=== PATIENT | male | born 2000 | race African-American/Black ===

== ENCOUNTER 2025-02-09 05:19 | Emergency (ER) | payer OTHER, SELFPAY ==
[2025-02-09 05:20] VITALS: BP 118/60; PULSE 78; RESP 18; TEMP 36.7; O2SAT 100
--- NOTE | 2025-02-09 06:09 | ED.WOUNDLAC ---
HPI - Wound/Laceration General Chief Complaint: Wound/Laceration Stated Complaint: laceration, right index Time Seen by Provider: 02/09/25 05:29 Source: patient Mode of arrival: ambulatory Limitations: no limitations History of Present Illness HPI narrative: This is a 24-year-old male, with no significant past medical history who presents to the emergency department complaining of right index finger laceration. 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 He rates his pain 7/10. He states his last tetanus vaccination was in 2021. He has no other complaints at this time. Related Data Allergies Allergy/AdvReac Type Severity Reaction Status Date / Time No Known Allergies Allergy Verified 02/09/25 05:25 Review of Systems Review of Systems: All systems reviewed & are unremarkable except as noted in HPI and below PMFSH Past Medical History Medical History No significant past medical history Surgical History Surgical History No significant past surgical history Social History Social History Smoking status: Never smoker Alcohol intake: never Substance use: never Exam Narrative: GENERAL: Well-developed, well-nourished, and in no acute distress. HEAD: Normocephalic, atraumatic. EYES: PERRLA and EOMI. CHEST: Clear to auscultation. No respiratory distress. No wheezes rales or rhonchi HEART: Regular rate and rhythm. No murmur heard. Normal peripheral pulses. EXTREMITIES: The distal 3 mm of the skin of the right index finger appears to have been removed with a sharp object. There is no visible bone. Controlled. Normal range of motion. No edema. SKIN: Warm, dry, no rash. NEURO: Alert and oriented x3. No focal deficit. Moving all 4 limbs spontaneously PSYCH: Normal mood and affect. Course Course Emergency Course: 06:10 - The patient's exam is not concerning for exposed bone. His laceration is not amenable to repair. Will dress with Xeroform gauze and placed in a finger splint for wound protection. Will discharge with recommendation for primary care follow-up in 3-5 days for wound re-evaluation. I discussed the findings and recommendations with the patient. Discussed return and emergency precautions including signs/symptoms of wound infection and neurovascular compromise. The patient voiced understanding and agreement with the plan. All questions answered to his satisfaction. Vital Signs Vital signs: Vital Signs Temperature 98.1 F 02/09/25 05:20 Pulse Rate 78 02/09/25 05:20 Respiratory Rate 18 02/09/25 05:20 Blood Pressure 118/60 02/09/25 05:20 Pulse Oximetry 100 02/09/25 05:20 Oxygen Delivery Room Air 02/09/25 05:20 Temperature 98.1 F 02/09/25 05:20 Pulse Rate 78 02/09/25 05:20 Respiratory Rate 18 02/09/25 05:20 Blood Pressure 118/60 02/09/25 05:20 Pulse Oximetry 100 02/09/25 05:20 Oxygen Delivery Room Air 02/09/25 05:20 MDM - Wound/Laceration MDM Narrative Medical decision making narrative: Plan: Pain control, wound care, reassess Differential Diagnosis Differential diagnosis: Likely laceration and other Discharge Plan Discharge Clinical Impression: Laceration of right index finger, Pain in right finger(s) Patient Disposition: Home Condition: Stable Instructions: Antibiotic Form, Laceration (ED) Additional Instructions: You were seen in the emergency department. Your laceration is not amenable to sutures. I recommend placement of either a antibiotic impregnated gauze or antibiotic ointment with gauze to cover the wound. I recommend following up with a primary care doctor in 3-5 days for wound re-evaluation. If you develop rapidly spreading redness with increasing pain and fevers, the finger appears blue/cold, or if you have other emergent concerns for life, limb, or eyesight, return to the emergency department. Patient Language: Slovak Prescriptions: New naproxen 500 mg tablet 500 mg PO BID PRN (Reason: pain) Qty: 20 0RF (DME) Xeroform 5 X 9 bandage See Rx Instructions .Route Qty: 72 0RF Rx Instructions: As directed Follow-up/Referrals: Derrick Mccracken MD [Physician] - 3 Days (For wound reevaluation) Stand Alone Forms: Work/School Release IP Time of Disposition: 06:12
[2025-02-09] MEDS: oxyCODONE/ACETAMINOPHEN (*CRX) 5-325 MG TABLET 1 TABLET PO (06:19)
--- OUTSIDE RECORDS SUMMARY | 2025-02-09 06:22 | XMS_ITS | Clinical Summary ---
Author Organization [facility] Address [address] [place] [id number] Care Team Providers Care Head Wrestling Coach Name Role Phone Fatoumata Capps MD Primary Care Provider Allergies No known active allergies Medications No known medications Active Problems No known active problems Immunizations Immunization Administration Dates Next Due DTaP 10/09/2007, 4,04/14/2003,03/06,2002 Hep A, Pediatric 11/04/2004 Hep B, Adolescent or Pediatric 08/07/2003,2002,2002 Hib (HbOC) 06/17/2004, 3,03/06/2003,12/22 IPV 10/09/2007, 3,03/06/2003,12/22 Influenza, Quadrivalent, Spl it, Preservative Free, Intramuscular 10/18/2022 Influenza, Split 08/29/2005, 4,09/04/2003,08/07 MMR 11/13/2003 MMRV 10/09/2007 Pneumococcal Conjugate 7-Valent 08/24/20 04,04/14/2003,03/06/2003,12/22 Varicella 11/13/2003 Surgical History Surgery Date Site/Laterality Comments CIRCUMCISION, NON- at 5 years old Medical History Medical History Date Comments No pertinent past medical history Family History Medical History Relation Name Comments Low Back Pain Father Hyperlipidemia Mother Colon cancer Other Paternal great grand-father Relation Name Status Comments Father Mother Other Social History Tobacco Use Types Packs/Day Years Used Date Smoking Tobacco: Never Smokeless Tobacco: Never Tobacco Cessation:Counseling Given: Not Answered PHQ-2 Answer Date Recorded PHQ-2 Total Score (If total score is 3 or more points, staff should administer the PHQ-9) 0 10/18/2022 Sex and Gender Information Value Date Recorded Sex Assigned at Not on file Legal Sex Male 2:02 PM PHOTO SPECIALIST Gender Identity Not on file Sexual Orientation Not on file Obstetrics History Last Filed Vital Signs Vital Sign Reading Time Taken Comments Blood Pressure 110/66 10/18/2022 3:06 PM PHOTO SPECIALIST Pulse 60 10/18/2022 3:06 PM PHOTO SPECIALIST Temperature 36.8 C (98.2 F) 07/24/2020 7:16 AM CDT Respiratory Rate 22 07/24/2020 7:16 AM CDT Oxygen Saturation 98% 07/24/2020 7:16 AM CDT Inhaled Oxygen Concentration - - Weight 82.6 kg (182 lb) 10/18/2022 3:06 PM PHOTO SPECIALIST Height 185.4 cm (6' 1 ) 10/18/2022 3:06 PM PHOTO SPECIALIST Body Mass Index 24.01 10/18/2022 3:06 PM PHOTO SPECIALIST Plan of Treatment Health Maintenance Due Date Last Done Comments Hepatitis C Screening 2002 DTaP/Tdap/Td Vaccine (6 - Tdap) 2013 10/09/2007, 06/17/2004, 04/14/2003, Additional history exists HPV Vaccines (1 - Male 3-dos e series) 2017 Meningococcal B Vaccine (1 o f 2 - Standard) 2018 Depression Screening 10/18/2023 10/18/2022 Regular Well Visit/Exam 18-64 10/18/2023 10/18/2022 Covid-19 Vaccine (3 - 2023-2 5 season) 2024 02/04/2021, 01/14/2021 Influenza Vaccine (#1) 2024 3, 08/29/2005, 08/24/2004, Additional history exists Hepatitis B Screening Completed 08/07/2003 , 01/23/2003, 2002 Pneumococcal vaccine <65 Completed 004, 04/14/2003, 03/06/2003, Additional history exists Varicella Vaccines Completed 10/09/2007, 11/13/2003 Insurance [employer] [place] [facility] [place] [address] Care Teams Head Wrestling Coach Relationship Specialty Start Date End Date Fatoumata Capps MD PCP - General Family Practice 10/18/22
--- OUTSIDE RECORDS SUMMARY | 2025-02-09 06:22 | XMS_ITS | Continuity of Care Document ---
Author Organization [facility] Address [address] [place] [address] Phone Care Team Providers Care Produce Wrapper Name Role Phone Pasquale HERBERT, Melissa Unavailable Unavailable Allergies, Adverse Reactions, Alerts Substance Reaction Status Criticality No Known Allergies Active No Inform ation Medications Medication Instructions Dosage Effective Dates (start - stop) Status Comments Vyvanse 50 mg capsule take 1 capsule by oral route every day in the morning 50 MG - Active Advance Directives Directive Yes / No Effective Date File Name No Information Encounters Encounter Description Practice Location Reason(s) For Visit Diagnoses Date Provider Providers Copied on Encounter [facility], [address], [address], [phone] [facility] Displaced simple supracondylar fracture without intercondylar fracture of right humerus, subsequent encounter for fracture with routine healing 8 Giordano Melissa. [address] [facility], [facility] [address], [place], [id number] . tel: [phone] [facility], [address] [facility] [address], [place], [address], [phone] [facility] Displaced simple supracondylar fracture without intercondylar fracture of right humerus, subsequent encounter for fracture with routine healing 8 Giordano Melissa. [address] [facility], [facility] [address], [place], [id number] . tel: [phone] [facility], [address], [address], tel:[phone] [facility] Closed supracondylar fracture of right elbow with routine healing 8 Pasquale Torres. [address] [facility], [address], [place], [place], [id number] . tel: [phone] [facility], [address] [facility], [place], [address], [phone] [facility] Contusion of right elbow, initial encounter 8 Pasquale Floresa. [address] [facility], [address], [place], [place], [id number] . tel: [phone] Referring Provider: Mohamud Erickson, [address] [place] [address], [address] . tel:[phone] Family History Family Member Type Diagnosis Age At Onset No Information Payers Payer name Insurance type Covered green party ID Authoriza tion(s) [facility] E2 OT [id number] Social History Type Description Quantity Date Captured Comments Sex Male Smoking Status No Information Chief Complaint And Reason For Visit No Information Reason For Referral Reason For Referral No Information Plan Of Treatment Date Type Action Status Referral Ordered: RADEX PAULINA 2 VIEWS RT ordered History Of Present Illness Encounter Date Complaint History Of Prese nt Illness No Information Functional Status Date Functional Assessmen t No Information Instructions Date Instruction Additional Infor mation No Information Assessments Type Assessment Date assessment Displaced simple sup racondylar fracture without intercondylar fracture of right humerus, subsequent encounter for fracture with routine healing Patient Care Teams Name Effective Dates (start - stop) Status Members No Information
--- OUTSIDE RECORDS SUMMARY | 2025-02-09 06:22 | XMS_ITS | Referral Summary ---
Author Organization [facility] Address [address] [place] [phone] Care Team Providers Care Roll Changer Name Role Phone Fatoumata Capps MD Primary [...] Pneumococcal Conjugate 7-Valent 08/24/20 04,04/14/2003,03/06/2003,12/22 Varicella 11/13/2003 Social History Tobacco Use Types Packs/Day Years Used Date Smoking Tobacco: Never Smokeless Tobacco: Never Tobacco Cessation:Counseling Given: Not Answered PHQ-2 Answer Date Recorded PHQ-2 Total Score (If total score is 3 or more points, staff should administer the PHQ-9) 0 10/18/2022 Sex and Gender Information Value Date Recorded Sex Assigned at Not on file Legal Sex Male 2:02 PM MARKET RESEARCH ASSOCIATE Gender Identity Not on file Sexual Orientation Not on file Last Filed Vital Signs Vital Sign Reading Time Taken Comments Blood Pressure 110/66 10/18/2022 3:06 PM MARKET RESEARCH ASSOCIATE Pulse 60 10/18/2022 3:06 PM MARKET RESEARCH ASSOCIATE Temperature 36.8 C (98.2 F) 07/24/2020 7:16 AM CDT Respiratory Rate 22 07/24/2020 7:16 AM CDT Oxygen Saturation 98% 07/24/2020 7:16 AM CDT Inhaled Oxygen Concentration - - Weight 82.6 kg (182 lb) 10/18/2022 3:06 PM MARKET RESEARCH ASSOCIATE Height 185.4 cm (6' 1 ) 10/18/2022 3:06 PM MARKET RESEARCH ASSOCIATE Body Mass Index 24.01 10/18/2022 3:06 PM MARKET RESEARCH ASSOCIATE Plan of Treatment Not on file Insurance [employer] [address] Care Teams Roll Changer Relationship Specialty Start Date End Date Fatoumata Capps MD PCP - General Family Practice 10/18/22
== END 2025-02-09 06:36 | disposition home or self-care (01) ==
LOC: ANHED 06:20
PROVIDERS: Emergency Provider Preventive Medicine Aerospace Medicine
DX: S61.210A Laceration without foreign body of right index finger without damage to nail, initial encounter (principal); W27.8XXA Contact with other nonpowered hand tool, initial encounter
CPT/HCPCS: 99283; A9270